=== PATIENT | female | born 1990 | race Caucasian/White ===

== ENCOUNTER 2016-10-28 17:10 | Emergency (ER) | payer OTHER ==
[2016-10-28 17:47] LABS: BASOPHIL 0.5 % (0-2); EOSINOPHIL 0.9 % (0-5); HCT 41.8 % (37.0-47.0); HGB 13.8 g/dl (12.5-16.0); LYMPHOCYTE 39.2 % (15-48); MCH 29.9 pg (25.0-31.0); MCV 90.7 fL (78.0-100.0); MONOCYTE 5.2 % (0-12); MPV 10.5 fL (6.0-9.5); NEUTROPHIL 54.2 % (41-80); PLT 334 K/uL (150-400); RBC 4.61 M/uL (4.20-5.40); RDW 13.6 % (11.5-14.0); WBC 7.4 K/uL (4.0-10.5)
[2016-10-28 18:08] LABS: BILIRUBIN NEGATIVE (NEGATIVE); BLOOD NEGATIVE Ery/uL (NEGATIVE); CLARITY CLEAR (CLEAR); COLOR YELLOW (YELLOW); GLUCOSE (U) NORMAL (NORMAL); KETONE (U) NEGATIVE (NEGATIVE); LEUKOCYTES NEGATIVE Leu/uL (NEGATIVE); NITRITE NEGATIVE (NEGATIVE); PROTEIN NEGATIVE (NEGATIVE); UROBILINOGEN 0.2 mg/dL (0.2-1.0)
[2016-10-28 18:09] LABS: ALBUMIN 5.1 g/dL (3.5-5.0); BILIRUBIN - TOTAL 0.2 mg/dL (0.1-1.0); CREATININE 0.7 mg/dL (0.5-1.0); GLOBULIN (CALCULATION) 2.5 g/dL (2.2-4.2); POTASSIUM 4.1 mmol/L (3.5-5.1); TOTAL PROTEIN 7.6 g/dL (6.4-8.3)
== END 2016-10-28 18:55 | disposition home or self-care (01) ==
LOC: FER 17:10
PROVIDERS: Nurse Practitioner
DX: F19.939 Other psychoactive substance use, unspecified with withdrawal, unspecified (principal); F32.9 Major depressive disorder, single episode, unspecified; Z79.899 Other long term (current) drug therapy
CPT/HCPCS: 36415; 80053; 81003; 85025; J1100; J2405; J2800